=== PATIENT | male | born 1970 | race Caucasian/White ===

== ENCOUNTER 2019-02-24 21:30 | Emergency (ER) | payer OTHER ==
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
[2019-02-24 23:00] VITALS: BP 150/71
== END 2019-02-24 22:58 | disposition home or self-care (01) ==
LOC: ED 21:30
DX: M25.561 Pain in right knee (principal); S01.21XA Laceration without foreign body of nose, initial encounter; R04.0 Epistaxis; Y04.2XXA Assault by strike against or bumped into by another person, initial encounter; Y92.149 Unspecified place in prison as the place of occurrence of the external cause; Y99.0 Civilian activity done for income or pay
CPT/HCPCS: 12011; 99282